=== PATIENT | male | born 1970 | race Caucasian/White ===

== ENCOUNTER 2021-02-10 08:37 | Emergency (ER) | payer BC ==
[2021-02-10 09:20] LABS: HEMOGLOBIN 13.4 gm/dl (14.0-17.5); RED BLOOD COUNT 4.08 M/UL (4.20-5.50); WHITE BLOOD COUNT 12.1 K/UL (4.5-11.0)
[2021-02-10 09:42] LABS: BUN/CREATININE RATIO 12 (0-10)
[2021-02-10] MEDS ORDERED: VISTARIL 50 MG50 MG PO (13:12)
[2021-02-10] MEDS ORDERED: NAPROSYN500 MG PO (13:12)
== END 2021-02-10 13:11 | disposition home or self-care (01) ==
LOC: ER1 08:37
PROVIDERS: Physician Assistant
DX: M79.675 Pain in left toe(s) (principal); F17.210 Nicotine dependence, cigarettes, uncomplicated
CPT/HCPCS: 71045; 80053; 82550; 82553; 83605; 83874; 83880; 84484; 85025; 90715; 93005; 93925; 96374; 96375; 99284; J1885; J2060; J2270; J7030